=== PATIENT | female | born 1965 | race African-American/Black ===

== ENCOUNTER 2018-08-04 07:23 | Emergency (ER) | payer OTHER ==
[~2018-08-04] VITALS: Ht 175.3 cm; Wt 98.0 kg
[2018-08-04 07:35] VITALS: Ht 175.3 cm; Wt 98.0 kg
[2018-08-04] MEDS ORDERED: NOR10 PO (08:00)
[2018-08-04] MEDS ORDERED: ATENOLOL50 MG PO (08:01)
[2018-08-04] MEDS ORDERED: LIPITOR80 MG PO (08:01)
[2018-08-04] MEDS ORDERED: GLUCOTROL10 MG (08:01)
[2018-08-04] MEDS ORDERED: BAYER ASPIRIN C81 MG (08:01)
[2018-08-04] MEDS ORDERED: HYZAAR1 TA2 (08:02)
[2018-08-04] MEDS ORDERED: HYDRALAZINE HCL25 MG (08:02)
[2018-08-04] MEDS ORDERED: METFORMIN HYDR500 M1 PO (08:02)
[2018-08-04 08:22] LABS: BASOPHIL % 0.4 % (0-2)
[2018-08-04 08:31] LABS: PLATELET COUNT 242 x10^3mcL (130-400); RED CELL DISTRIBUTION WIDTH 14.5 % (11.5-14.5)
[2018-08-04 09:49] LABS: CALCIUM 9.8 mg/dL (8.5-10.1); CARBON DIOXIDE 25.1 mmol/L (21-32); CREATININE SERUM 1.2 mg/dL (0.6-1.0); POTASSIUM SERUM 3.8 mmol/L (3.5-5.1)
[2018-08-04 09:54] LABS: ALBUMIN 3.9 g/dL (3.4-5.0); BILIRUBIN TOTAL 0.35 mg/dL (0.20-1.00)
[2018-08-04 09:56] LABS: TOTAL PROTEIN, SERUM 8.6 g/dL (6.4-8.2)
[2018-08-04 11:05] VITALS: BP 112/55
== END 2018-08-04 11:05 | disposition home or self-care (01) ==
LOC: ED 07:23
PROVIDERS: Emergency Medicine
DX: E86.0 Dehydration (principal); F41.9 Anxiety disorder, unspecified; I10 Essential (primary) hypertension; E11.9 Type 2 diabetes mellitus without complications; F17.210 Nicotine dependence, cigarettes, uncomplicated; Z88.8 Allergy status to other drugs, medicaments and biological substances
CPT/HCPCS: 82962; 83880; J7030; Q0092